=== PATIENT | male | born 1950 | race Caucasian/White ===

== ENCOUNTER → 2016-09-16 | Outpatient (CLI) | payer MEDICAID ==
--- NOTE | 2016-09-16 17:35 | CPEEG ---
[f rep st] ELECTROENCEPHALOGRAM DATE OF STUDY: 09/16/2016 DATE OF INTERPRETATION: 09/16/16 INTERPRETATION: Normal EEG during wakefulness and partial sleep. There were no potentially epilepto genic abnormalities present in the recording. REPORT: This EEG contains 9 Hz alpha activity over the posterior head regions. There was no abnorma l activation at rest, during photic stimulation or hyperventilation. The patient became drowsy and f ell into light sleep intermittently during the study. There was no abnormal activation during drowsi ness, light sleep, or during times of arousal. /[id number]/MODL
== END ==
LOC: FCPNEURO 11:01
PROVIDERS: ATTEND Psychiatry & Neurology Neurology
DX: G40.909 Epilepsy, unspecified, not intractable, without status epilepticus (principal); I63.9 Cerebral infarction, unspecified

== ENCOUNTER → 2017-06-29 | Outpatient (CLI) | payer MEDICAID, OTHER ==
[~2017-06-29] MED LIST: LIDOCAINE 1% 300 MG/30 ML SDV ONE
== END ==
LOC: FIMAGING 09:27
PROVIDERS: ATTEND Otolaryngology
PROC: 0G9H3ZX Drainage of Right Thyroid Gland Lobe, Percutaneous Approach, Diagnostic (ICD-10-PCS; principal; 2017-06-29)
DX: E07.9 Disorder of thyroid, unspecified (principal)

== ENCOUNTER → 2017-12-15 | Outpatient (CLI) | payer OTHER | LOC: FIMAGING 12:00 | PROVIDERS: ATTEND Physician Assistant | DX: R93.0 Abnormal findings on diagnostic imaging of skull and head, not elsewhere classified (principal); G40.309 Generalized idiopathic epilepsy and epileptic syndromes, not intractable, without status epilepticus ==